=== PATIENT | female | born 1955 | race African-American/Black ===

== ENCOUNTER 2022-03-31 11:54 | Inpatient (IN) | payer MEDICARE, MEDICAID ==
[~2022-03-31] VITALS: Ht 165.1 cm; Wt 148.3 kg
[2022-03-31] MEDS ORDERED: METFORMIN (12:00)
[2022-03-31] MEDS ORDERED: SODIUM CHLORIDE 0.9% 1,000 ML IV ONE (12:15)
[2022-03-31] MEDS ORDERED: CLINDAMYCIN 600 MG in DEXTROSE 5% WATER 50 ML IV ONE (13:00)
[2022-03-31] MEDS ORDERED: CLINDAMYCIN 600 MG in SODIUM CHLORIDE 0.9% 50 ML IV ONE (13:01)
[2022-03-31 14:37] LABS: CHLORIDE 91 mEq/L (98-107)
[2022-03-31 14:39] LABS: HEMATOCRIT. 45.5 % (36.0-48.0); HEMOGLOBIN. 14.9 g/dL (12.0-16.0); MEAN CORPUSCULAR HEMOGLOBIN 23.7 pg (28.0-32.0); MEAN CORPUSCULAR VOLUME 72.3 fL (81.0-99.0); MEAN PLATELET VOLUME 11.1 fl (7.4-10.4); PLATELET 139 x1000/uL (130-400); RED BLOOD CELL COUNT 6.29 mill/uL (4.2-5.4); RED CELL DISTRIBUTION WIDTH 15.3 % (11.6-14.6)
[2022-03-31 14:57] LABS: CREATINE KINASE 1464 IU/L (26-192)
[2022-03-31] MEDS ORDERED: LEVOFLOXACIN 750MG PREMIX 100 ML IV SCH (15:00)
[2022-03-31] MEDS ORDERED: DEXTROSE 50% WATER 50ML SYRINGE IV PRN (15:00)
[2022-03-31] MEDS ORDERED: ACETAMINOPHEN 325MG TABLET PO PRN (15:00)
[2022-03-31] MEDS: SODIUM CHLORIDE 0.9% 1,000 ML IV SCH (15:28)
[2022-03-31 15:29] LABS: INR 1.3; PROTHROMBIN TIME 13.4 sec (9.6-11.0)
[2022-03-31 16:29] LABS: PLATELET ESTIMATE NORMAL
[2022-03-31] MEDS ORDERED: VANCOMYCIN 2,000 MG in DEXT 5% WATER 500 ML IV NR (16:30)
[2022-03-31] MEDS: BLOOD SUGAR DIAGNOSTIC STRIP TEST SCH ×2 (17:00→21:23)
[2022-03-31] MEDS: INSULIN LISPRO 100 UNITS/ML SUBCUT SCH ×2 (19:17→21:00)
[2022-03-31 20:17] LABS: CLARITY URINE CLOUDY (CLEAR); COLOR URINE DARK YELLOW (YELLOW); KETONES URINE TRACE (NEGATIVE); LEUKOCYTE ESTERASE URINE 2+ (NEGATIVE); NITRITE URINE NEGATIVE (NEGATIVE); OCCULT BLOOD URINE 2+ (NEGATIVE); PROTEIN URINE 1+ (NEGATIVE)
[2022-03-31] MEDS: METOPROLOL TARTRATE 50MG TABLET PO SCH (21:21)
[2022-03-31 22:40] VITALS: BP 110/53
[2022-03-31] MEDS: HYDROCODONE/ACETAMINOPHEN 10/325MG TABLET PO PRN (23:17)
[2022-04-01 04:00] VITALS: BP 113/74
[2022-04-01] MEDS: SODIUM CHLORIDE 0.9% 1,000 ML IV SCH ×2 (04:17→18:12)
[2022-04-01] MEDS: INSULIN LISPRO 100 UNITS/ML SUBCUT SCH ×4 (05:29→21:20)
[2022-04-01] MEDS: BLOOD SUGAR DIAGNOSTIC STRIP TEST SCH ×4 (05:30→21:21)
[2022-04-01 06:14] LABS: HEMATOCRIT. 41.1 % (36.0-48.0); HEMOGLOBIN. 13.2 g/dL (12.0-16.0); MEAN CORPUSCULAR HEMOGLOBIN 23.6 pg (28.0-32.0); MEAN CORPUSCULAR VOLUME 73.3 fL (81.0-99.0); MEAN PLATELET VOLUME 10.9 fl (7.4-10.4); PLATELET 125 x1000/uL (130-400); RED BLOOD CELL COUNT 5.61 mill/uL (4.2-5.4); RED CELL DISTRIBUTION WIDTH 14.9 % (11.6-14.6)
[2022-04-01 08:00] VITALS: BP 100/57
[2022-04-01] MEDS: METOPROLOL TARTRATE 50MG TABLET PO SCH ×2 (09:11→17:00)
[2022-04-01] MEDS: INSULIN GLARGINE 100 UNITS/ML SUBCUT SCH ×2 (09:47→21:21)
[2022-04-01 10:48] LABS: PLATELET ESTIMATE NORMAL
[2022-04-01 12:00] VITALS: BP 98/59
[2022-04-01 16:00] VITALS: BP 95/56
[2022-04-01] MEDS: HYDROCODONE/ACETAMINOPHEN 10/325MG TABLET PO PRN (17:30)
[2022-04-01 20:00] VITALS: BP 84/48
[2022-04-01 22:00] VITALS: BP 93/54
[2022-04-02] VITALS: BP 93/54
[2022-04-02 04:00] VITALS: BP 93/57
[2022-04-02] MEDS: HYDROCODONE/ACETAMINOPHEN 10/325MG TABLET PO PRN ×3 (04:04→17:09)
[2022-04-02] MEDS: SODIUM CHLORIDE 0.9% 1,000 ML IV SCH ×2 (06:10→22:57)
[2022-04-02] MEDS: BLOOD SUGAR DIAGNOSTIC STRIP TEST SCH ×4 (06:11→21:00)
[2022-04-02 08:00] VITALS: BP 99/59
[2022-04-02] MEDS: METOPROLOL TARTRATE 50MG TABLET PO SCH (08:36)
[2022-04-02] MEDS: INSULIN LISPRO 100 UNITS/ML SUBCUT SCH ×4 (08:43→23:07)
[2022-04-02] MEDS: INSULIN GLARGINE 100 UNITS/ML SUBCUT SCH ×2 (10:32→23:07)
[2022-04-02 11:56] LABS: HEMATOCRIT. 44.5 % (36.0-48.0); HEMOGLOBIN. 14.8 g/dL (12.0-16.0); MEAN CORPUSCULAR HEMOGLOBIN 23.9 pg (28.0-32.0); PLATELET 152 x1000/uL (130-400); RED BLOOD CELL COUNT 6.19 mill/uL (4.2-5.4); RED CELL DISTRIBUTION WIDTH 14.7 % (11.6-14.6)
[2022-04-02 12:00] VITALS: BP 116/65
[2022-04-02 12:40] LABS: PLATELET ESTIMATE NORMAL
[2022-04-02] MEDS ORDERED: LEVOFLOXACIN 250MG PREMIX 50 ML IV SCH (15:00)
[2022-04-02] MEDS ORDERED: LEVOFLOXACIN 750MG PREMIX 100 ML IV SCH (15:00)
[2022-04-02 16:00] VITALS: BP 100/60
[2022-04-02 20:00] VITALS: BP 102/56
[2022-04-03] VITALS (8 sets, daily range): BP systolic 87–112; BP diastolic 48–69
[2022-04-03] MEDS ORDERED: VANCOMYCIN 750MG PREMIX 150 ML IV NR
[2022-04-03] MEDS: HYDROCODONE/ACETAMINOPHEN 10/325MG TABLET PO PRN ×2 (01:07→21:46)
[2022-04-03 06:58] LABS: CHLORIDE 96 mEq/L (98-107)
[2022-04-03 07:04] LABS: HEMATOCRIT. 42.1 % (36.0-48.0); HEMOGLOBIN. 13.8 g/dL (12.0-16.0); MEAN CORPUSCULAR HEMOGLOBIN 23.7 pg (28.0-32.0); MEAN CORPUSCULAR VOLUME 72.3 fL (81.0-99.0); MEAN PLATELET VOLUME 10.4 fl (7.4-10.4); PLATELET 156 x1000/uL (130-400); RED BLOOD CELL COUNT 5.82 mill/uL (4.2-5.4); RED CELL DISTRIBUTION WIDTH 15.2 % (11.6-14.6)
[2022-04-03] MEDS: BLOOD SUGAR DIAGNOSTIC STRIP TEST SCH ×4 (07:40→21:56)
[2022-04-03] MEDS: INSULIN LISPRO 100 UNITS/ML SUBCUT SCH ×4 (08:57→21:52)
[2022-04-03] MEDS: SODIUM CHLORIDE 0.9% 1,000 ML IV SCH ×2 (08:59→21:58)
[2022-04-03] MEDS: INSULIN GLARGINE 100 UNITS/ML SUBCUT SCH ×2 (10:31→22:40)
[2022-04-03] MEDS: LEVOFLOXACIN 500MG PREMIX 100 ML IV SCH (13:52)
[2022-04-03] MEDS: VANCOMYCIN 1.25GM PMX (XELLIA) 250 ML IV SCH (21:47)
[2022-04-03] MEDS ORDERED: NALOXONE HCL 0.4MG/ML VIAL IV PRN (22:00)
[2022-04-03 22:06] LABS: PLATELET ESTIMATE NORMAL
[2022-04-04] VITALS: BP 91/47
[2022-04-04] MEDS: VANCOMYCIN 1.25GM PMX (XELLIA) 250 ML IV SCH
[2022-04-04 04:00] VITALS: BP 98/55
[2022-04-04] MEDS: BLOOD SUGAR DIAGNOSTIC STRIP TEST SCH ×4 (07:40→17:40)
[2022-04-04 08:00] VITALS: BP 110/66
[2022-04-04] MEDS: INSULIN LISPRO 100 UNITS/ML SUBCUT SCH ×3 (08:10→18:10)
[2022-04-04] MEDS: INSULIN GLARGINE 100 UNITS/ML SUBCUT SCH (10:00)
[2022-04-04 11:37] LABS: HEMATOCRIT. 42.1 % (36.0-48.0); HEMOGLOBIN. 13.7 g/dL (12.0-16.0); MEAN CORPUSCULAR HEMOGLOBIN 23.7 pg (28.0-32.0); MEAN CORPUSCULAR VOLUME 73.1 fL (81.0-99.0); PLATELET 178 x1000/uL (130-400); RED BLOOD CELL COUNT 5.76 mill/uL (4.2-5.4); RED CELL DISTRIBUTION WIDTH 15.1 % (11.6-14.6)
[2022-04-04 12:00] VITALS: BP 115/77
[2022-04-04] MEDS: LEVOFLOXACIN 500MG PREMIX 100 ML IV SCH (12:02)
[2022-04-04] MEDS: SODIUM CHLORIDE 0.9% 1,000 ML IV SCH (12:08)
[2022-04-04 12:31] LABS: CHLORIDE 97 mEq/L (98-107)
[2022-04-04 16:00] VITALS: BP 102/54
[2022-04-04] MEDS ORDERED: PROPOFOL 200MG/20ML VIAL IV ONE (17:53)
[2022-04-04] MEDS ORDERED: SUCCINYLCHOLINE CHLORIDE 200MG/10ML IV ONE (18:50)
[2022-04-04] MEDS ORDERED: CEFAZOLIN SODIUM 1000MG/VIAL ONE (18:50)
[2022-04-04] MEDS ORDERED: ONDANSETRON HCL 4MG/2ML INJ ONE (18:50)
[2022-04-04] MEDS ORDERED: DEXAMETHASONE 4MG/ML 1ML VIAL ONE (18:50)
[2022-04-04] MEDS ORDERED: EPHEDRINE SULFATE 50MG/ML VIAL ONE (18:51)
[2022-04-04] MEDS ORDERED: PHENYLEPHRINE HCL 10 MG/ML 1ML (IV VIAL) IV ONE (18:51)
[2022-04-04] MEDS ORDERED: LIDOCAINE HCL 1% 50ML VIAL (10MG/ML) ONE (18:52)
[2022-04-04] MEDS ORDERED: BUPIVACAINE HCL/PF 0.5% (5MG/ML) 10ML ONE (18:52)
[2022-04-04 19:00] LABS: PLATELET ESTIMATE NORMAL
[2022-04-04] MEDS ORDERED: POLYMYXIN B SULFATE 500000 UNITS/VIAL ONE (19:00)
[2022-04-04] MEDS ORDERED: ROCURONIUM BROMIDE 10MG/ML VIAL 5ML IV ONE ×2 (19:19→20:58)
[2022-04-04] MEDS ORDERED: MIDAZOLAM HCL 2 MG/2 ML VIAL ONE (19:20)
[2022-04-04] MEDS ORDERED: ATROPINE SULFATE 0.4MG/ML VIAL IV PRN (19:45)
[2022-04-04] MEDS ORDERED: PROPOFOL 10MG/ML 100ML 100 ML IV PRN (19:45)
[2022-04-04] MEDS ORDERED: NOREPINEPHRINE 8 MG in DEXT 5% WATER 242 ML IV PRN (20:00)
[2022-04-04] MEDS ORDERED: NALOXONE HCL 0.4MG/ML VIAL IV PRN (20:45)
[2022-04-04] MEDS ORDERED: SODIUM CHLORIDE 0.9% 1000ML BAG (SEPSIS BOLUS) IV NR (21:00)
[2022-04-04] MEDS: PHENYLEPHRINE 50 MG in DEXT 5% WATER 245 ML IV PRN (22:32)
[2022-04-04 22:36] LABS: BG BASE EXCESS -11.9 mmol/L (-2.0-2.0); BG DEOXYHEMOGLOBIN 5.1 % (0.0-5.0); BG FRACTION INSPIRED OXYGEN 100; BG HCO3 ACT 15.4 mmol/L (22.0-26.0); BG METHEMOGLOBIN 0.3 % (0.0-1.5); BG OXYGEN SATURATION 94.8 % (92.0-98.5); BG OXYHEMOGLOBIN 93.6 % (94.0-97.0); BG PH 7.204 (7.350-7.450); BG PO2 89.7 mmHg (75.0-100.0); BG SAMPLE SITE LEFT BRACHIAL; BG TOTAL HEMOGLOBIN 13.5 g/dL (12.0-18.0); BG VENT MODE VENT - AC
[2022-04-04] MEDS ORDERED: IPRATROPIUM/ALBUTEROL 0.5-3(2.5)MG/3ML NEB HHN PRN (23:30)
[2022-04-04] MEDS ORDERED: SODIUM BICARBONATE 8.4% 1 MEQ/ML 50ML SYR IV NR (23:30)
[2022-04-04] MEDS ORDERED: FENTANYL CITRATE/PF 2,500 MCG in SODIUM CHLORIDE 0.9% 200 ML IV PRN (23:30)
[2022-04-04] MEDS ORDERED: MIDAZOLAM HCL 100 MG in SODIUM CHLORIDE 0.9% 80 ML IV PRN (23:30)
[2022-04-05] VITALS (89 sets, daily range): BP systolic 62–147; BP diastolic 24–80
[2022-04-05] MEDS: PROPOFOL 10MG/ML 100ML 100 ML IV PRN ×3 (00:02→10:35)
[2022-04-05] MEDS: INSULIN LISPRO 100 UNITS/ML SUBCUT SCH ×5 (00:37→20:35)
[2022-04-05] MEDS: INSULIN GLARGINE 100 UNITS/ML SUBCUT SCH ×3 (00:37→21:23)
[2022-04-05] MEDS: SODIUM CHLORIDE 0.9% 1,000 ML IV SCH ×5 (00:38→21:25)
[2022-04-05] MEDS: PHENYLEPHRINE 50 MG in DEXT 5% WATER 245 ML IV PRN ×6 (03:20→20:25)
[2022-04-05] MEDS: BLOOD SUGAR DIAGNOSTIC STRIP TEST SCH ×4 (05:47→20:26)
[2022-04-05 05:48] LABS: HEMATOCRIT. 36.3 % (36.0-48.0); HEMOGLOBIN. 11.2 g/dL (12.0-16.0); MEAN CORPUSCULAR HEMOGLOBIN 23.5 pg (28.0-32.0); MEAN CORPUSCULAR VOLUME 76.3 fL (81.0-99.0); MEAN PLATELET VOLUME 10.3 fl (7.4-10.4); PLATELET 209 x1000/uL (130-400); RED BLOOD CELL COUNT 4.77 mill/uL (4.2-5.4)
[2022-04-05 08:24] LABS: BG BASE EXCESS -9.9 mmol/L (-2.0-2.0); BG CARBOXYHEMOGLOBIN 0.5 % (0.5-1.5); BG DEOXYHEMOGLOBIN 0.6 % (0.0-5.0); BG FRACTION INSPIRED OXYGEN 100; BG HCO3 ACT 14.7 mmol/L (22.0-26.0); BG OXYGEN SATURATION 99.4 % (92.0-98.5); BG OXYHEMOGLOBIN 98.9 % (94.0-97.0); BG PCO2 28.9 mmHg (35.0-45.0); BG PH 7.325 (7.350-7.450); BG PO2 257.1 mmHg (75.0-100.0); BG SAMPLE SITE LEFT BRACHIAL; BG TOTAL HEMOGLOBIN 12.2 g/dL (12.0-18.0); BG VENT MODE VENT - AC
[2022-04-05] MEDS: MIDODRINE HCL 5MG TABLET PO SCH ×3 (09:04→16:16)
[2022-04-05] MEDS: ENOXAPARIN 40MG/0.4ML SYR SUBCUT SCH ×2 (09:05→20:34)
[2022-04-05] MEDS: CEFEPIME 2,000 MG in DEXT 5% WATER 100 ML IV SCH ×2 (11:43→23:28)
[2022-04-05] MEDS: VANCOMYCIN 1GM PMX (XELLIA) 200 ML IV SCH (12:17)
[2022-04-05 13:29] LABS: BG BASE EXCESS -7.5 mmol/L (-2.0-2.0); BG CARBOXYHEMOGLOBIN 0.3 % (0.5-1.5); BG DEOXYHEMOGLOBIN 2.1 % (0.0-5.0); BG FRACTION INSPIRED OXYGEN 40; BG METHEMOGLOBIN 0.3 % (0.0-1.5); BG OXYGEN SATURATION 97.9 % (92.0-98.5); BG OXYHEMOGLOBIN 97.3 % (94.0-97.0); BG PH 7.391 (7.350-7.450); BG PO2 112.6 mmHg (75.0-100.0); BG SAMPLE SITE RIGHT RADIAL; BG VENT MODE VENT - CPAP
[2022-04-05] MEDS: HYDROMORPHONE HCL/PF 2MG/ML CPJ IV PRN (14:30)
[2022-04-06] VITALS (87 sets, daily range): BP systolic 80–128; BP diastolic 36–77
[2022-04-06] MEDS: PHENYLEPHRINE 50 MG in DEXT 5% WATER 245 ML IV PRN (01:09)
[2022-04-06] MEDS: SODIUM CHLORIDE 0.9% 1,000 ML IV SCH ×3 (03:08→21:47)
[2022-04-06] MEDS: HYDROMORPHONE HCL/PF 2MG/ML CPJ IV PRN ×3 (04:02→21:54)
[2022-04-06 04:57] LABS: CHLORIDE 108 mEq/L (98-107)
[2022-04-06] MEDS: INSULIN LISPRO 100 UNITS/ML SUBCUT SCH ×3 (05:38→17:25)
[2022-04-06] MEDS: BLOOD SUGAR DIAGNOSTIC STRIP TEST SCH ×4 (05:39→23:59)
[2022-04-06 06:53] LABS: PLATELET ESTIMATE NORMAL
[2022-04-06] MEDS: MIDODRINE HCL 5MG TABLET PO SCH ×3 (09:15→17:42)
[2022-04-06] MEDS: ENOXAPARIN 40MG/0.4ML SYR SUBCUT SCH ×2 (09:16→21:47)
[2022-04-06] MEDS: INSULIN GLARGINE 100 UNITS/ML SUBCUT SCH ×2 (09:16→21:46)
[2022-04-06 09:38] LABS: BG BASE EXCESS -5.9 mmol/L (-2.0-2.0); BG CARBOXYHEMOGLOBIN 0.3 % (0.5-1.5); BG DEOXYHEMOGLOBIN 5.6 % (0.0-5.0); BG FRACTION INSPIRED OXYGEN 28; BG HCO3 ACT 19.6 mmol/L (22.0-26.0); BG METHEMOGLOBIN 0.3 % (0.0-1.5); BG OXYGEN SATURATION 94.4 % (92.0-98.5); BG OXYHEMOGLOBIN 93.8 % (94.0-97.0); BG PCO2 38.7 mmHg (35.0-45.0); BG PH 7.323 (7.350-7.450); BG PO2 76.8 mmHg (75.0-100.0); BG SAMPLE SITE RIGHT BRACHIAL; BG TOTAL HEMOGLOBIN 10.9 g/dL (12.0-18.0); BG VENT MODE NASAL CANNULA
[2022-04-06 10:27] LABS: BASOPHILS % 0.3 % (0.0-2.0); EOSINOPHILS % 0.2 % (0.0-5.0); HEMATOCRIT. 33.7 % (36.0-48.0); HEMOGLOBIN. 10.6 g/dL (12.0-16.0); LYMPHOCYTES % 7.1 % (20.0-50.0); MEAN CORPUSCULAR HEMOGLOBIN 23.2 pg (28.0-32.0); MEAN CORPUSCULAR VOLUME 73.9 fL (81.0-99.0); MONOCYTES % 4.4 % (2.0-8.0); PLATELET 180 x1000/uL (130-400); RED BLOOD CELL COUNT 4.56 mill/uL (4.2-5.4); RED CELL DISTRIBUTION WIDTH 15.3 % (11.6-14.6)
[2022-04-06] MEDS: CEFEPIME 2,000 MG in DEXT 5% WATER 100 ML IV SCH ×2 (11:11→23:58)
[2022-04-06] MEDS: VANCOMYCIN 1GM PMX (XELLIA) 200 ML IV SCH (12:02)
[2022-04-07] VITALS (96 sets, daily range): BP systolic 85–152; BP diastolic 39–101
[2022-04-07] MEDS: HYDROMORPHONE HCL/PF 2MG/ML CPJ IV PRN ×2 (03:45→19:33)
[2022-04-07] MEDS ORDERED: SODIUM CHLORIDE 0.9% 1,000 ML IV ONE (04:30)
[2022-04-07 05:00] LABS: BASOPHILS % 0.2 % (0.0-2.0); EOSINOPHILS % 0.6 % (0.0-5.0); HEMOGLOBIN. 10.1 g/dL (12.0-16.0); LYMPHOCYTES % 8.2 % (20.0-50.0); MEAN CORPUSCULAR HEMOGLOBIN 23.2 pg (28.0-32.0); MEAN CORPUSCULAR VOLUME 73.4 fL (81.0-99.0); MEAN PLATELET VOLUME 8.7 fl (7.4-10.4); MONOCYTES % 3.9 % (2.0-8.0); NEUTROPHILS % 87.1 % (40.0-76.0); PLATELET 197 x1000/uL (130-400); RED BLOOD CELL COUNT 4.36 mill/uL (4.2-5.4); RED CELL DISTRIBUTION WIDTH 15.7 % (11.6-14.6)
[2022-04-07 05:12] LABS: CHLORIDE 111 mEq/L (98-107)
[2022-04-07] MEDS: BLOOD SUGAR DIAGNOSTIC STRIP TEST SCH ×4 (05:40→23:14)
[2022-04-07] MEDS: INSULIN LISPRO 100 UNITS/ML SUBCUT SCH ×5 (06:00→23:15)
[2022-04-07] MEDS: AMIODARONE HCL 900 MG in DEXT 5% WATER 482 ML IV PRN (08:27)
[2022-04-07 08:33] LABS: BG BASE EXCESS -10.3 mmol/L (-2.0-2.0); BG CARBOXYHEMOGLOBIN 0.8 % (0.5-1.5); BG DEOXYHEMOGLOBIN 6.2 % (0.0-5.0); BG HCO3 ACT 15.9 mmol/L (22.0-26.0); BG OXYGEN SATURATION 93.8 % (92.0-98.5); BG PCO2 36.4 mmHg (35.0-45.0); BG PH 7.259 (7.350-7.450); BG PO2 76.5 mmHg (75.0-100.0); BG SAMPLE SITE RIGHT RADIAL; BG TOTAL HEMOGLOBIN 11.6 g/dL (12.0-18.0); BG VENT MODE NASAL CANNULA
[2022-04-07] MEDS ORDERED: AMIODARONE HCL 150 MG in DEXT 5% WATER 100 ML IV NR (09:00)
[2022-04-07] MEDS ORDERED: SODIUM BICARBONATE 8.4% 1 MEQ/ML 50ML SYR IV SCH (10:00)
[2022-04-07] MEDS ORDERED: SODIUM CHLORIDE 0.9% 500 ML IV SCH (11:00)
[2022-04-07] MEDS: PHENYLEPHRINE 50 MG in DEXT 5% WATER 245 ML IV PRN ×2 (11:21→17:48)
[2022-04-07] MEDS: MIDODRINE HCL 5MG TABLET PO SCH ×3 (11:39→17:47)
[2022-04-07] MEDS: ENOXAPARIN 40MG/0.4ML SYR SUBCUT SCH ×2 (11:40→20:53)
[2022-04-07] MEDS: INSULIN GLARGINE 100 UNITS/ML SUBCUT SCH ×2 (11:52→22:00)
[2022-04-07 11:57] LABS: T4 FREE 0.87 ng/dL (0.76-1.46)
[2022-04-07] MEDS ORDERED: DIGOXIN 500MCG/2ML AMP IV SCH (12:00)
[2022-04-07] MEDS: CEFEPIME 2,000 MG in DEXT 5% WATER 100 ML IV SCH ×2 (12:09→23:17)
[2022-04-07] MEDS: SODIUM BICARBONATE 100 MEQ in SODIUM CHLORIDE 0.45% 1,000 ML IV SCH ×2 (12:09→23:18)
[2022-04-07] MEDS: VANCOMYCIN 1GM PMX (XELLIA) 200 ML IV SCH (12:09)
[2022-04-07] MEDS: AMIODARONE HCL 200 MG TABLET PO SCH ×2 (12:10→17:47)
[2022-04-07] MEDS ORDERED: LATA2.5D14 EACHEYE (17:40)
[2022-04-07] MEDS: LATANOPROST 0.005% OPHTH DROPS 2.5ML BOTHEYE SCH (20:53)
[2022-04-08] VITALS (91 sets, daily range): BP systolic 85–147; BP diastolic 36–79
[2022-04-08] MEDS: HYDROMORPHONE HCL/PF 2MG/ML CPJ IV PRN ×3 (03:16→20:53)
[2022-04-08 05:29] LABS: HEMATOCRIT. 30.2 % (36.0-48.0); HEMOGLOBIN. 9.7 g/dL (12.0-16.0); MEAN CORPUSCULAR HEMOGLOBIN 23.8 pg (28.0-32.0); MEAN CORPUSCULAR VOLUME 73.9 fL (81.0-99.0); MEAN PLATELET VOLUME 8.5 fl (7.4-10.4); PLATELET 208 x1000/uL (130-400); RED BLOOD CELL COUNT 4.09 mill/uL (4.2-5.4); RED CELL DISTRIBUTION WIDTH 15.5 % (11.6-14.6)
[2022-04-08 05:38] LABS: CHLORIDE 111 mEq/L (98-107)
[2022-04-08] MEDS: INSULIN LISPRO 100 UNITS/ML SUBCUT SCH ×4 (06:00→23:20)
[2022-04-08] MEDS: BLOOD SUGAR DIAGNOSTIC STRIP TEST SCH ×4 (06:05→23:15)
[2022-04-08] MEDS: AMIODARONE HCL 200 MG TABLET PO SCH ×3 (06:05→18:27)
[2022-04-08 08:21] LABS: BG BASE EXCESS -2.7 mmol/L (-2.0-2.0); BG CARBOXYHEMOGLOBIN 0.5 % (0.5-1.5); BG DEOXYHEMOGLOBIN 4.4 % (0.0-5.0); BG FRACTION INSPIRED OXYGEN 36; BG HCO3 ACT 22.3 mmol/L (22.0-26.0); BG METHEMOGLOBIN 0.3 % (0.0-1.5); BG OXYGEN SATURATION 95.6 % (92.0-98.5); BG OXYHEMOGLOBIN 94.8 % (94.0-97.0); BG PCO2 39.6 mmHg (35.0-45.0); BG PH 7.369 (7.350-7.450); BG SAMPLE SITE RIGHT BRACHIAL; BG TOTAL HEMOGLOBIN 9.6 g/dL (12.0-18.0); BG VENT MODE NASAL CANNULA
[2022-04-08] MEDS: ENOXAPARIN 40MG/0.4ML SYR SUBCUT SCH ×2 (09:40→20:53)
[2022-04-08] MEDS: MIDODRINE HCL 5MG TABLET PO SCH ×3 (09:41→18:27)
[2022-04-08] MEDS: VANCOMYCIN 1GM PMX (XELLIA) 200 ML IV SCH (11:08)
[2022-04-08] MEDS: CEFEPIME 2,000 MG in DEXT 5% WATER 100 ML IV SCH ×2 (11:08→23:19)
[2022-04-08] MEDS: INSULIN GLARGINE 100 UNITS/ML SUBCUT SCH ×2 (14:00→23:19)
[2022-04-08 14:21] LABS: NUCLEATED RED BLOOD CELLS 1 /100 WBC; PLATELET ESTIMATE NORMAL
[2022-04-08] MEDS: SODIUM BICARBONATE 100 MEQ in SODIUM CHLORIDE 0.45% 1,000 ML IV SCH (14:40)
[2022-04-08] MEDS: PHENYLEPHRINE 50 MG in DEXT 5% WATER 245 ML IV PRN (16:41)
[2022-04-08] MEDS: AMIODARONE HCL 900 MG in DEXT 5% WATER 482 ML IV PRN (19:52)
[2022-04-08] MEDS: LATANOPROST 0.005% OPHTH DROPS 2.5ML BOTHEYE SCH (20:53)
[2022-04-09] VITALS (86 sets, daily range): BP systolic 92–139; BP diastolic 33–106
[2022-04-09] MEDS: HYDROMORPHONE HCL/PF 2MG/ML CPJ IV PRN ×3 (01:20→23:35)
[2022-04-09] MEDS ORDERED: LATA2.5D14 EACHEYE (04:09)
[2022-04-09] MEDS ORDERED: BRIM5DRO6 EACHEYE (04:09)
[2022-04-09] MEDS ORDERED: ATOR40TA70 MT (04:09)
[2022-04-09] MEDS ORDERED: DORZ10DR9 EACHEYE (04:09)
[2022-04-09] MEDS ORDERED: MULT-1146 MT (04:09)
[2022-04-09] MEDS ORDERED: INS7030 SUBCUT (04:09)
[2022-04-09] MEDS ORDERED: HYDR12.54 MT (04:09)
[2022-04-09] MEDS ORDERED: SERT20OR6 PO (04:09)
[2022-04-09] MEDS: BLOOD SUGAR DIAGNOSTIC STRIP TEST SCH ×3 (05:30→18:19)
[2022-04-09] MEDS: SODIUM BICARBONATE 100 MEQ in SODIUM CHLORIDE 0.45% 1,000 ML IV SCH ×2 (05:36→22:13)
[2022-04-09 05:59] LABS: CHLORIDE 109 mEq/L (98-107)
[2022-04-09] MEDS: INSULIN LISPRO 100 UNITS/ML SUBCUT SCH ×3 (06:00→18:00)
[2022-04-09 06:04] LABS: BASOPHILS % 0.3 % (0.0-2.0); EOSINOPHILS % 0.9 % (0.0-5.0); HEMATOCRIT. 29.9 % (36.0-48.0); HEMOGLOBIN. 9.5 g/dL (12.0-16.0); LYMPHOCYTES % 7.6 % (20.0-50.0); MEAN CORPUSCULAR HEMOGLOBIN 23.7 pg (28.0-32.0); MEAN CORPUSCULAR VOLUME 74.5 fL (81.0-99.0); MEAN PLATELET VOLUME 8.6 fl (7.4-10.4); MONOCYTES % 4.1 % (2.0-8.0); NEUTROPHILS % 87.1 % (40.0-76.0); PLATELET 168 x1000/uL (130-400); RED BLOOD CELL COUNT 4.01 mill/uL (4.2-5.4); RED CELL DISTRIBUTION WIDTH 15.2 % (11.6-14.6)
[2022-04-09 06:27] LABS: INR 1.3; PARTIAL THROMBOPLASTIN TIME 33.9 sec (23.4-31.0); PROTHROMBIN TIME 13.7 sec (9.6-11.0)
[2022-04-09] MEDS: AMIODARONE HCL 200 MG TABLET PO SCH ×3 (06:36→17:00)
[2022-04-09] MEDS: MIDODRINE HCL 5MG TABLET PO SCH (08:43)
[2022-04-09] MEDS: ENOXAPARIN 40MG/0.4ML SYR SUBCUT SCH ×2 (09:00→21:00)
[2022-04-09] MEDS ORDERED: HYDROCODONE/ACETAMINOPHEN 5/325MG TABLET PO PRN (09:30)
[2022-04-09] MEDS ORDERED: MORPHINE SULFATE 4 MG/ML CPJ (NOT FOR IM USE) IV PRN (09:30)
[2022-04-09] MEDS ORDERED: POTASSIUM CHLORIDE 20MEQ/PACKET PO ONE (09:30)
[2022-04-09] MEDS ORDERED: HYDROCODONE/ACETAMINOPHEN 10/325MG TABLET PO PRN (09:30)
[2022-04-09] MEDS: INSULIN GLARGINE 100 UNITS/ML SUBCUT SCH ×2 (09:36→22:00)
[2022-04-09] MEDS ORDERED: NALOXONE HCL 0.4MG/ML VIAL IV PRN (09:45)
[2022-04-09] MEDS: CEFEPIME 2,000 MG in DEXT 5% WATER 100 ML IV SCH (12:58)
[2022-04-09] MEDS: MORPHINE SULFATE 2 MG/ML CPJ (NOT FOR IM USE) IV PRN ×2 (13:12→20:42)
[2022-04-09] MEDS: PHENYLEPHRINE 50 MG in DEXT 5% WATER 245 ML IV PRN (13:27)
[2022-04-09] MEDS: VANCOMYCIN 1GM PMX (XELLIA) 200 ML IV SCH (13:28)
[2022-04-09] MEDS: METRONIDAZOLE 500MG TABLET PO SCH ×2 (14:57→22:13)
[2022-04-10] VITALS (84 sets, daily range): BP systolic 81–162; BP diastolic 29–79
[2022-04-10] MEDS: CEFEPIME 2,000 MG in DEXT 5% WATER 100 ML IV SCH ×2 (02:37→12:18)
[2022-04-10] MEDS: LATANOPROST 0.005% OPHTH DROPS 2.5ML BOTHEYE SCH ×2 (02:38→21:42)
[2022-04-10] MEDS: MORPHINE SULFATE 2 MG/ML CPJ (NOT FOR IM USE) IV PRN ×2 (02:47→09:22)
[2022-04-10] MEDS: AMIODARONE HCL 900 MG in DEXT 5% WATER 482 ML IV PRN (04:53)
[2022-04-10 05:32] LABS: BASOPHILS % 0.4 % (0.0-2.0); HEMATOCRIT. 29.2 % (36.0-48.0); HEMOGLOBIN. 9.4 g/dL (12.0-16.0); MEAN CORPUSCULAR HEMOGLOBIN 23.7 pg (28.0-32.0); MEAN CORPUSCULAR VOLUME 74.1 fL (81.0-99.0); MEAN PLATELET VOLUME 8.3 fl (7.4-10.4); MONOCYTES % 8.6 % (2.0-8.0); PLATELET 157 x1000/uL (130-400); RED BLOOD CELL COUNT 3.94 mill/uL (4.2-5.4)
[2022-04-10 05:55] LABS: CHLORIDE 105 mEq/L (98-107)
[2022-04-10] MEDS: INSULIN LISPRO 100 UNITS/ML SUBCUT SCH ×4 (06:00→17:30)
[2022-04-10] MEDS: AMIODARONE HCL 200 MG TABLET PO SCH ×2 (06:09→17:18)
[2022-04-10] MEDS: METRONIDAZOLE 500MG TABLET PO SCH ×3 (06:09→21:42)
[2022-04-10] MEDS: HYDROMORPHONE HCL/PF 2MG/ML CPJ IV PRN ×3 (06:10→18:00)
[2022-04-10] MEDS: BLOOD SUGAR DIAGNOSTIC STRIP TEST SCH ×4 (06:50→17:30)
[2022-04-10] MEDS: ENOXAPARIN 40MG/0.4ML SYR SUBCUT SCH ×2 (08:57→21:00)
[2022-04-10] MEDS: INSULIN GLARGINE 100 UNITS/ML SUBCUT SCH ×2 (10:00→21:43)
[2022-04-10] MEDS ORDERED: NALOXONE HCL 0.4MG/ML VIAL IV PRN (11:00)
[2022-04-10] MEDS: VANCOMYCIN 1GM PMX (XELLIA) 200 ML IV SCH (12:18)
[2022-04-10] MEDS: SODIUM BICARBONATE 100 MEQ in SODIUM CHLORIDE 0.45% 1,000 ML IV SCH (12:19)
[2022-04-10] MEDS: HYDROCODONE/ACETAMINOPHEN 10/325MG TABLET PO PRN (13:43)
[2022-04-10] MEDS: DIPHENHYDRAMINE 25MG CAPSULE PO PRN (14:03)
[2022-04-10] MEDS: SODIUM CHLORIDE 0.9% 1,000 ML IV SCH (17:34)
[2022-04-10] MEDS: PHENYLEPHRINE 50 MG in DEXT 5% WATER 245 ML IV PRN ×2 (18:18→21:59)
[2022-04-11] VITALS (82 sets, daily range): BP systolic 61–143; BP diastolic 18–76
[2022-04-11] MEDS: BLOOD SUGAR DIAGNOSTIC STRIP TEST SCH ×4 (00:58→18:55)
[2022-04-11] MEDS: HYDROMORPHONE HCL/PF 2MG/ML CPJ IV PRN ×3 (01:05→12:49)
[2022-04-11] MEDS: CEFEPIME 2,000 MG in DEXT 5% WATER 100 ML IV SCH ×2 (01:09→12:49)
[2022-04-11] MEDS: INSULIN LISPRO 100 UNITS/ML SUBCUT SCH ×4 (06:00→18:00)
[2022-04-11] MEDS: METRONIDAZOLE 500MG TABLET PO SCH ×3 (06:00→21:13)
[2022-04-11] MEDS: AMIODARONE HCL 200 MG TABLET PO SCH ×2 (07:00→17:00)
[2022-04-11] MEDS: ENOXAPARIN 40MG/0.4ML SYR SUBCUT SCH ×2 (08:01→21:11)
[2022-04-11 10:33] LABS: BASOPHILS % 0.3 % (0.0-2.0); EOSINOPHILS % 1.1 % (0.0-5.0); HEMOGLOBIN. 8.9 g/dL (12.0-16.0); LYMPHOCYTES % 17.4 % (20.0-50.0); MEAN CORPUSCULAR HEMOGLOBIN 23.4 pg (28.0-32.0); MEAN CORPUSCULAR VOLUME 73.4 fL (81.0-99.0); MEAN PLATELET VOLUME 8.5 fl (7.4-10.4); MONOCYTES % 9.7 % (2.0-8.0); NEUTROPHILS % 71.5 % (40.0-76.0); PLATELET 167 x1000/uL (130-400); RED BLOOD CELL COUNT 3.82 mill/uL (4.2-5.4); RED CELL DISTRIBUTION WIDTH 14.9 % (11.6-14.6)
[2022-04-11 10:42] LABS: CHLORIDE 109 mEq/L (98-107)
[2022-04-11] MEDS: INSULIN GLARGINE 100 UNITS/ML SUBCUT SCH ×2 (11:00→21:12)
[2022-04-11] MEDS: SODIUM CHLORIDE 0.9% 1,000 ML IV SCH (12:48)
[2022-04-11] MEDS: VANCOMYCIN 1GM PMX (XELLIA) 200 ML IV SCH (12:50)
[2022-04-11] MEDS ORDERED: LIDOCAINE HCL 1% 50ML VIAL (10MG/ML) ONE (15:02)
[2022-04-11] MEDS ORDERED: POLYMYXIN B SULFATE 500000 UNITS/VIAL ONE (15:02)
[2022-04-11] MEDS ORDERED: BUPIVACAINE HCL 0.5% (5MG/ML) 50ML ONE (15:03)
[2022-04-11] MEDS ORDERED: BUPIVACAINE HCL/PF 0.5% (5MG/ML) 10ML ONE (15:03)
[2022-04-11] MEDS: MIDODRINE HCL 5MG TABLET PO SCH ×2 (15:15→17:00)
[2022-04-11] MEDS ORDERED: PROPOFOL 200MG/20ML VIAL IV ONE (15:43)
[2022-04-11] MEDS ORDERED: SUCCINYLCHOLINE CHLORIDE 200MG/10ML IV ONE (15:43)
[2022-04-11] MEDS ORDERED: METOCLOPRAMIDE HCL 10MG/2ML VIAL ONE (15:43)
[2022-04-11] MEDS ORDERED: HYDROMORPHONE HCL/PF 2MG/ML CPJ ONE (15:44)
[2022-04-11] MEDS ORDERED: ONDANSETRON HCL 4MG/2ML INJ ONE (15:46)
[2022-04-11] MEDS ORDERED: LIDOCAINE HCL/PF 2% 20MG/ML 5 ML/VIAL ONE (15:46)
[2022-04-11] MEDS ORDERED: MIDAZOLAM HCL 2 MG/2 ML VIAL ONE (15:47)
[2022-04-11 19:07] LABS: BG BASE EXCESS 0.9 mmol/L (-2.0-2.0); BG CARBOXYHEMOGLOBIN 0.2 % (0.5-1.5); BG DEOXYHEMOGLOBIN 7.6 % (0.0-5.0); BG FRACTION INSPIRED OXYGEN 50; BG HCO3 ACT 25.4 mmol/L (22.0-26.0); BG METHEMOGLOBIN 0.3 % (0.0-1.5); BG OXYGEN SATURATION 92.4 % (92.0-98.5); BG OXYHEMOGLOBIN 91.9 % (94.0-97.0); BG PCO2 40.5 mmHg (35.0-45.0); BG PH 7.416 (7.350-7.450); BG PO2 67.1 mmHg (75.0-100.0); BG SAMPLE SITE LEFT BRACHIAL; BG TOTAL HEMOGLOBIN 10.3 g/dL (12.0-18.0); BG VENT MODE VENT - AC
[2022-04-11] MEDS: PROPOFOL 10MG/ML 100ML 100 ML IV PRN (20:00)
[2022-04-11] MEDS: LATANOPROST 0.005% OPHTH DROPS 2.5ML BOTHEYE SCH (22:07)
[2022-04-12] VITALS (87 sets, daily range): BP systolic 83–125; BP diastolic 24–74
[2022-04-12] MEDS: INSULIN LISPRO 100 UNITS/ML SUBCUT SCH ×4 (00:08→17:25)
[2022-04-12] MEDS: PROPOFOL 10MG/ML 100ML 100 ML IV PRN ×2 (02:28→07:08)
[2022-04-12] MEDS: HYDROMORPHONE HCL/PF 2MG/ML CPJ IV PRN ×2 (04:52→21:43)
[2022-04-12] MEDS: SODIUM CHLORIDE 0.9% 1,000 ML IV SCH ×2 (04:52→23:38)
[2022-04-12] MEDS: PHENYLEPHRINE 50 MG in DEXT 5% WATER 245 ML IV PRN (04:54)
[2022-04-12 05:05] LABS: BASOPHILS % 0.3 % (0.0-2.0); EOSINOPHILS % 1.1 % (0.0-5.0); HEMATOCRIT. 31.7 % (36.0-48.0); HEMOGLOBIN. 9.7 g/dL (12.0-16.0); LYMPHOCYTES % 11.7 % (20.0-50.0); MEAN CORPUSCULAR HEMOGLOBIN 23.8 pg (28.0-32.0); MEAN CORPUSCULAR VOLUME 77.9 fL (81.0-99.0); MONOCYTES % 5.9 % (2.0-8.0); PLATELET 179 x1000/uL (130-400); RED BLOOD CELL COUNT 4.06 mill/uL (4.2-5.4)
[2022-04-12 05:18] LABS: CHLORIDE 109 mEq/L (98-107)
[2022-04-12] MEDS: METRONIDAZOLE 500MG TABLET PO SCH ×3 (06:00→21:41)
[2022-04-12] MEDS: BLOOD SUGAR DIAGNOSTIC STRIP TEST SCH ×5 (06:15→23:57)
[2022-04-12] MEDS: AMIODARONE HCL 200 MG TABLET PO SCH ×2 (06:16→17:24)
[2022-04-12] MEDS: MIDODRINE HCL 5MG TABLET PO SCH ×4 (08:40→17:24)
[2022-04-12] MEDS: ENOXAPARIN 40MG/0.4ML SYR SUBCUT SCH ×2 (09:04→21:42)
[2022-04-12] MEDS: INSULIN GLARGINE 100 UNITS/ML SUBCUT SCH ×2 (09:08→21:44)
[2022-04-12] MEDS: HYDROCODONE/ACETAMINOPHEN 10/325MG TABLET PO PRN ×2 (09:08→15:55)
[2022-04-12] MEDS: ONDANSETRON HCL 4MG/2ML INJ IV PRN ×2 (09:11→15:54)
[2022-04-12] MEDS: VANCOMYCIN 1GM PMX (XELLIA) 200 ML IV SCH (11:37)
[2022-04-12] MEDS: CEFEPIME 2,000 MG in DEXT 5% WATER 100 ML IV SCH ×4 (12:42→23:57)
[2022-04-12] MEDS ORDERED: MIDODRINE HCL 5MG TABLET PO SCH ×2 (13:00→13:15)
[2022-04-12] MEDS: LATANOPROST 0.005% OPHTH DROPS 2.5ML BOTHEYE SCH (21:59)
[2022-04-13] VITALS (85 sets, daily range): BP systolic 85–130; BP diastolic 37–71
[2022-04-13] MEDS: INSULIN LISPRO 100 UNITS/ML SUBCUT SCH ×5 (00:17→21:00)
[2022-04-13] MEDS: HYDROMORPHONE HCL/PF 2MG/ML CPJ IV PRN ×3 (05:22→16:20)
[2022-04-13] MEDS: PHENYLEPHRINE 50 MG in DEXT 5% WATER 245 ML IV PRN (05:23)
[2022-04-13] MEDS: BLOOD SUGAR DIAGNOSTIC STRIP TEST SCH ×4 (06:00→21:11)
[2022-04-13] MEDS: AMIODARONE HCL 200 MG TABLET PO SCH ×2 (07:00→17:01)
[2022-04-13] MEDS: METRONIDAZOLE 500MG TABLET PO SCH ×3 (07:01→21:10)
[2022-04-13] MEDS: MIDODRINE HCL 5MG TABLET PO SCH ×3 (09:17→17:01)
[2022-04-13] MEDS: ENOXAPARIN 40MG/0.4ML SYR SUBCUT SCH ×2 (09:18→21:25)
[2022-04-13] MEDS: INSULIN GLARGINE 100 UNITS/ML SUBCUT SCH ×2 (10:21→21:34)
[2022-04-13] MEDS: VANCOMYCIN 1GM PMX (XELLIA) 200 ML IV SCH (12:23)
[2022-04-13 13:07] LABS: BASOPHILS % 0.5 % (0.0-2.0); HEMATOCRIT. 29.8 % (36.0-48.0); HEMOGLOBIN. 9.3 g/dL (12.0-16.0); LYMPHOCYTES % 31.1 % (20.0-50.0); MEAN CORPUSCULAR HEMOGLOBIN 24.2 pg (28.0-32.0); MEAN CORPUSCULAR VOLUME 77.5 fL (81.0-99.0); MEAN PLATELET VOLUME 8.8 fl (7.4-10.4); MONOCYTES % 12.1 % (2.0-8.0); NEUTROPHILS % 55.3 % (40.0-76.0); PLATELET 184 x1000/uL (130-400); RED BLOOD CELL COUNT 3.84 mill/uL (4.2-5.4); RED CELL DISTRIBUTION WIDTH 15.9 % (11.6-14.6)
[2022-04-13] MEDS: CEFEPIME 2,000 MG in DEXT 5% WATER 100 ML IV SCH ×2 (13:19→23:25)
[2022-04-13 14:16] LABS: CHLORIDE 112 mEq/L (98-107)
[2022-04-13] MEDS: HYDROCODONE/ACETAMINOPHEN 10/325MG TABLET PO PRN (19:49)
[2022-04-13] MEDS ORDERED: DEXTROSE 50% WATER 50ML SYRINGE IV PRN (20:15)
[2022-04-13] MEDS: LATANOPROST 0.005% OPHTH DROPS 2.5ML BOTHEYE SCH ×2 (21:00→23:27)
[2022-04-13] MEDS: SODIUM CHLORIDE 0.9% 1,000 ML IV SCH (21:27)
[2022-04-14] VITALS (28 sets, daily range): BP systolic 92–131; BP diastolic 25–71
[2022-04-14] MEDS: HYDROMORPHONE HCL/PF 2MG/ML CPJ IV PRN ×4 (01:21→12:34)
[2022-04-14] MEDS: BLOOD SUGAR DIAGNOSTIC STRIP TEST SCH ×4 (05:52→21:00)
[2022-04-14] MEDS: METRONIDAZOLE 500MG TABLET PO SCH ×3 (05:52→22:59)
[2022-04-14] MEDS: AMIODARONE HCL 200 MG TABLET PO SCH ×2 (06:08→18:04)
[2022-04-14] MEDS: INSULIN LISPRO 100 UNITS/ML SUBCUT SCH ×4 (06:09→21:00)
[2022-04-14] MEDS: ENOXAPARIN 40MG/0.4ML SYR SUBCUT SCH ×2 (08:13→21:00)
[2022-04-14] MEDS: MIDODRINE HCL 5MG TABLET PO SCH ×3 (08:13→18:08)
[2022-04-14] MEDS: INSULIN GLARGINE 100 UNITS/ML SUBCUT SCH ×2 (10:47→22:56)
[2022-04-14] MEDS: VANCOMYCIN 1GM PMX (XELLIA) 200 ML IV SCH (12:35)
[2022-04-14] MEDS: CEFEPIME 2,000 MG in DEXT 5% WATER 100 ML IV SCH ×2 (12:35→23:10)
[2022-04-14] MEDS: HYDROCODONE/ACETAMINOPHEN 10/325MG TABLET PO PRN ×2 (18:03→22:59)
[2022-04-14] MEDS: LATANOPROST 0.005% OPHTH DROPS 2.5ML BOTHEYE SCH (21:00)
[2022-04-14] MEDS: SODIUM CHLORIDE 0.9% 1,000 ML IV SCH (23:14)
[2022-04-15] VITALS: BP 128/63
[2022-04-15 04:00] VITALS: BP 102/67
[2022-04-15] MEDS: HYDROCODONE/ACETAMINOPHEN 10/325MG TABLET PO PRN ×3 (04:02→23:12)
[2022-04-15 08:00] VITALS: BP 98/45
[2022-04-15] MEDS: BLOOD SUGAR DIAGNOSTIC STRIP TEST SCH ×4 (08:08→20:46)
[2022-04-15] MEDS: INSULIN LISPRO 100 UNITS/ML SUBCUT SCH ×4 (08:10→20:48)
[2022-04-15] MEDS: MIDODRINE HCL 5MG TABLET PO SCH ×3 (09:39→17:13)
[2022-04-15] MEDS: AMIODARONE HCL 200 MG TABLET PO SCH (09:40)
[2022-04-15] MEDS: METRONIDAZOLE 500MG TABLET PO SCH ×3 (09:40→21:12)
[2022-04-15] MEDS: ENOXAPARIN 40MG/0.4ML SYR SUBCUT SCH ×2 (09:40→21:12)
[2022-04-15] MEDS: INSULIN GLARGINE 100 UNITS/ML SUBCUT SCH ×2 (09:41→21:13)
[2022-04-15] MEDS ORDERED: MORPHINE SULFATE 2 MG/ML CPJ (NOT FOR IM USE) IV NR (10:45)
[2022-04-15] MEDS: CEFEPIME 2,000 MG in DEXT 5% WATER 100 ML IV SCH ×2 (11:38→23:12)
[2022-04-15] MEDS ORDERED: VANCOMYCIN 1.25GM PMX (XELLIA) 250 ML IV SCH (12:00)
[2022-04-15 16:00] VITALS: BP 117/57
[2022-04-15] MEDS ORDERED: NALOXONE HCL 0.4MG/ML VIAL IV PRN (16:15)
[2022-04-15] MEDS: SODIUM CHLORIDE 0.9% 1,000 ML IV SCH (17:50)
[2022-04-15 20:00] VITALS: BP 128/63
[2022-04-15] MEDS: LATANOPROST 0.005% OPHTH DROPS 2.5ML BOTHEYE SCH (21:12)
[2022-04-16] VITALS: BP 113/67
[2022-04-16 04:00] VITALS: BP 98/57
[2022-04-16] MEDS: VANCOMYCIN 1GM PMX (XELLIA) 200 ML IV SCH (06:11)
[2022-04-16] MEDS: METRONIDAZOLE 500MG TABLET PO SCH ×3 (06:11→22:10)
[2022-04-16] MEDS: INSULIN LISPRO 100 UNITS/ML SUBCUT SCH ×3 (07:57→20:09)
[2022-04-16] MEDS: BLOOD SUGAR DIAGNOSTIC STRIP TEST SCH ×4 (07:57→20:09)
[2022-04-16] MEDS: ENOXAPARIN 40MG/0.4ML SYR SUBCUT SCH ×2 (10:42→20:15)
[2022-04-16] MEDS: MIDODRINE HCL 5MG TABLET PO SCH ×3 (10:43→17:38)
[2022-04-16] MEDS: HYDROCODONE/ACETAMINOPHEN 10/325MG TABLET PO PRN ×3 (10:43→23:47)
[2022-04-16] MEDS: INSULIN GLARGINE 100 UNITS/ML SUBCUT SCH (10:44)
[2022-04-16 12:00] VITALS: BP 125/67
[2022-04-16] MEDS: CEFEPIME 2,000 MG in DEXT 5% WATER 100 ML IV SCH ×2 (12:00→23:46)
[2022-04-16] MEDS: SODIUM CHLORIDE 0.9% 1,000 ML IV SCH (14:00)
[2022-04-16 16:00] VITALS: BP 99/56
[2022-04-16 20:00] VITALS: BP 128/68
[2022-04-16] MEDS: LATANOPROST 0.005% OPHTH DROPS 2.5ML BOTHEYE SCH (20:15)
[2022-04-17] VITALS: BP 100/58
[2022-04-17] MEDS: VANCOMYCIN 1GM PMX (XELLIA) 200 ML IV SCH ×2 (00:58→17:26)
[2022-04-17 04:00] VITALS: BP 109/61
[2022-04-17] MEDS: METRONIDAZOLE 500MG TABLET PO SCH ×3 (06:00→21:20)
[2022-04-17] MEDS: HYDROCODONE/ACETAMINOPHEN 10/325MG TABLET PO PRN ×3 (06:04→17:25)
[2022-04-17] MEDS: BLOOD SUGAR DIAGNOSTIC STRIP TEST SCH ×4 (07:01→21:20)
[2022-04-17] MEDS: INSULIN LISPRO 100 UNITS/ML SUBCUT SCH ×4 (07:34→21:00)
[2022-04-17 08:00] VITALS: BP 118/55
[2022-04-17] MEDS: MIDODRINE HCL 5MG TABLET PO SCH ×3 (08:31→17:25)
[2022-04-17] MEDS: ENOXAPARIN 40MG/0.4ML SYR SUBCUT SCH ×2 (08:32→21:20)
[2022-04-17] MEDS: AMIODARONE HCL 200 MG TABLET PO SCH ×2 (08:33→17:25)
[2022-04-17] MEDS: SODIUM CHLORIDE 0.9% 1,000 ML IV SCH (10:42)
[2022-04-17 12:00] VITALS: BP 108/51
[2022-04-17] MEDS: CEFEPIME 2,000 MG in DEXT 5% WATER 100 ML IV SCH (12:17)
[2022-04-17] MEDS ORDERED: ACETAMINOPHEN 325MG TABLET PO PRN (14:45)
[2022-04-17 16:00] VITALS: BP 146/62
[2022-04-17 20:00] VITALS: BP 114/59
[2022-04-17] MEDS: LATANOPROST 0.005% OPHTH DROPS 2.5ML BOTHEYE SCH (21:20)
[2022-04-18] VITALS: BP 94/58
[2022-04-18] MEDS: HYDROCODONE/ACETAMINOPHEN 10/325MG TABLET PO PRN ×4 (03:10→18:15)
[2022-04-18 04:00] VITALS: BP 114/67
[2022-04-18] MEDS: SODIUM CHLORIDE 0.9% 1,000 ML IV SCH (04:54)
[2022-04-18] MEDS: BLOOD SUGAR DIAGNOSTIC STRIP TEST SCH ×4 (06:59→21:00)
[2022-04-18] MEDS: INSULIN LISPRO 100 UNITS/ML SUBCUT SCH ×4 (07:43→21:00)
[2022-04-18 08:00] VITALS: BP 114/62
[2022-04-18] MEDS: AMIODARONE HCL 200 MG TABLET PO SCH ×2 (08:59→18:15)
[2022-04-18] MEDS: MIDODRINE HCL 5MG TABLET PO SCH ×3 (08:59→17:00)
[2022-04-18] MEDS: ENOXAPARIN 40MG/0.4ML SYR SUBCUT SCH ×2 (09:00→21:00)
[2022-04-18 12:00] VITALS: BP 128/63
[2022-04-18 16:00] VITALS: BP 112/63
[2022-04-18 20:00] VITALS: BP 129/73
[2022-04-18] MEDS: LATANOPROST 0.005% OPHTH DROPS 2.5ML BOTHEYE SCH (21:22)
[2022-04-18] MEDS ORDERED: MORPHINE SULFATE 2 MG/ML CPJ (NOT FOR IM USE) IV NR (21:45)
[2022-04-19] VITALS: BP 100/55
[2022-04-19] MEDS: SODIUM CHLORIDE 0.9% 1,000 ML IV SCH (03:13)
[2022-04-19 04:00] VITALS: BP 104/55
[2022-04-19] MEDS: BLOOD SUGAR DIAGNOSTIC STRIP TEST SCH ×4 (07:33→20:42)
[2022-04-19 08:00] VITALS: BP 96/50
[2022-04-19] MEDS: INSULIN LISPRO 100 UNITS/ML SUBCUT SCH ×4 (08:10→21:00)
[2022-04-19] MEDS ORDERED: SODIUM CHLORIDE 45ML SPRAY NS PRN (09:15)
[2022-04-19] MEDS ORDERED: OXYCODONE HCL/ACETAMINOPHEN 5/325MG TABLET PO PRN (09:15)
[2022-04-19] MEDS: HYDROCODONE/ACETAMINOPHEN 10/325MG TABLET PO PRN ×2 (09:35→20:39)
[2022-04-19] MEDS: ENOXAPARIN 40MG/0.4ML SYR SUBCUT SCH ×2 (09:35→20:42)
[2022-04-19] MEDS: MIDODRINE HCL 5MG TABLET PO SCH ×3 (09:36→17:00)
[2022-04-19] MEDS: AMIODARONE HCL 200 MG TABLET PO SCH ×2 (09:36→17:25)
[2022-04-19 12:00] VITALS: BP 104/76
[2022-04-19 16:00] VITALS: BP 127/61
[2022-04-19 20:00] VITALS: BP 117/65
[2022-04-19] MEDS: LATANOPROST 0.005% OPHTH DROPS 2.5ML BOTHEYE SCH (20:32)
[2022-04-20] VITALS: BP 98/47
[2022-04-20] MEDS: HYDROCODONE/ACETAMINOPHEN 10/325MG TABLET PO PRN ×4 (02:37→23:20)
[2022-04-20 04:00] VITALS: BP 107/63
[2022-04-20] MEDS: BLOOD SUGAR DIAGNOSTIC STRIP TEST SCH ×4 (06:21→21:00)
[2022-04-20 08:00] VITALS: BP 99/60
[2022-04-20] MEDS: INSULIN LISPRO 100 UNITS/ML SUBCUT SCH ×4 (08:06→21:00)
[2022-04-20 08:15] LABS: HEMOGLOBIN. 9.1 g/dL (12.0-16.0); MEAN CORPUSCULAR VOLUME 74.3 fL (81.0-99.0); MEAN PLATELET VOLUME 8.7 fl (7.4-10.4); PLATELET 248 x1000/uL (130-400); RED BLOOD CELL COUNT 3.77 mill/uL (4.2-5.4); RED CELL DISTRIBUTION WIDTH 16.6 % (11.6-14.6)
[2022-04-20 08:22] LABS: CHLORIDE 108 mEq/L (98-107)
[2022-04-20] MEDS: AMIODARONE HCL 200 MG TABLET PO SCH ×2 (08:58→18:43)
[2022-04-20] MEDS: ENOXAPARIN 40MG/0.4ML SYR SUBCUT SCH ×2 (08:58→21:03)
[2022-04-20] MEDS: MIDODRINE HCL 5MG TABLET PO SCH ×3 (08:59→18:43)
[2022-04-20 11:29] LABS: PLATELET ESTIMATE NORMAL
[2022-04-20 12:00] VITALS: BP 113/59
[2022-04-20 16:00] VITALS: BP 94/45
[2022-04-20] MEDS: SODIUM CHLORIDE 0.9% 1,000 ML IV SCH (17:30)
[2022-04-20 20:00] VITALS: BP 112/49
[2022-04-20] MEDS: LATANOPROST 0.005% OPHTH DROPS 2.5ML BOTHEYE SCH (21:04)
[2022-04-21] VITALS: BP 91/52
[2022-04-21 04:00] VITALS: BP 101/50
[2022-04-21] MEDS: SODIUM CHLORIDE 0.9% 1,000 ML IV SCH (05:38)
[2022-04-21] MEDS: BLOOD SUGAR DIAGNOSTIC STRIP TEST SCH ×4 (05:52→20:44)
[2022-04-21] MEDS: HYDROCODONE/ACETAMINOPHEN 10/325MG TABLET PO PRN ×3 (05:57→20:44)
[2022-04-21] MEDS: INSULIN LISPRO 100 UNITS/ML SUBCUT SCH ×4 (05:59→20:44)
[2022-04-21 08:00] VITALS: BP 101/40
[2022-04-21] MEDS: AMIODARONE HCL 200 MG TABLET PO SCH ×2 (09:08→17:23)
[2022-04-21] MEDS: MIDODRINE HCL 5MG TABLET PO SCH ×3 (09:08→17:23)
[2022-04-21] MEDS: ENOXAPARIN 40MG/0.4ML SYR SUBCUT SCH ×2 (09:08→20:43)
[2022-04-21 12:00] VITALS: BP 124/65
[2022-04-21 16:00] VITALS: BP 122/56
[2022-04-21] MEDS: DIPHENHYDRAMINE 25MG CAPSULE PO PRN (18:33)
[2022-04-21 20:00] VITALS: BP 161/59
[2022-04-21] MEDS: LATANOPROST 0.005% OPHTH DROPS 2.5ML BOTHEYE SCH (20:44)
[2022-04-22] VITALS: BP 103/55
[2022-04-22 04:00] VITALS: BP 166/70
[2022-04-22] MEDS: HYDROCODONE/ACETAMINOPHEN 10/325MG TABLET PO PRN ×4 (04:38→20:15)
[2022-04-22 08:00] VITALS: BP 124/60
[2022-04-22] MEDS: INSULIN LISPRO 100 UNITS/ML SUBCUT SCH ×4 (08:10→20:16)
[2022-04-22] MEDS: BLOOD SUGAR DIAGNOSTIC STRIP TEST SCH ×4 (08:29→20:15)
[2022-04-22] MEDS: MIDODRINE HCL 5MG TABLET PO SCH ×3 (10:15→19:11)
[2022-04-22] MEDS: AMIODARONE HCL 200 MG TABLET PO SCH ×2 (10:16→19:08)
[2022-04-22] MEDS: SODIUM CHLORIDE 0.9% 1,000 ML IV SCH (10:17)
[2022-04-22] MEDS: ENOXAPARIN 40MG/0.4ML SYR SUBCUT SCH ×2 (10:20→20:14)
[2022-04-22 12:00] VITALS: BP 116/71
[2022-04-22 16:00] VITALS: BP 113/69
[2022-04-22 20:00] VITALS: BP 115/58
[2022-04-22] MEDS: LATANOPROST 0.005% OPHTH DROPS 2.5ML BOTHEYE SCH (20:14)
[2022-04-23] VITALS: BP 95/38
[2022-04-23] MEDS: HYDROCODONE/ACETAMINOPHEN 10/325MG TABLET PO PRN ×4 (01:17→18:28)
[2022-04-23 04:00] VITALS: BP 99/60
[2022-04-23] MEDS: SODIUM CHLORIDE 0.9% 1,000 ML IV SCH ×2 (05:50→14:33)
[2022-04-23] MEDS: BLOOD SUGAR DIAGNOSTIC STRIP TEST SCH ×4 (06:40→20:47)
[2022-04-23 08:00] VITALS: BP 127/34
[2022-04-23] MEDS: AMIODARONE HCL 200 MG TABLET PO SCH ×2 (10:18→18:32)
[2022-04-23] MEDS: MIDODRINE HCL 5MG TABLET PO SCH ×3 (10:18→18:33)
[2022-04-23] MEDS: ENOXAPARIN 40MG/0.4ML SYR SUBCUT SCH ×2 (10:20→20:44)
[2022-04-23 12:00] VITALS: BP 112/44
[2022-04-23] MEDS: INSULIN LISPRO 100 UNITS/ML SUBCUT SCH ×3 (12:49→20:47)
[2022-04-23 20:33] VITALS: BP 127/34
[2022-04-23] MEDS: LATANOPROST 0.005% OPHTH DROPS 2.5ML BOTHEYE SCH (20:45)
[2022-04-24] VITALS: BP 117/61
[2022-04-24 04:00] VITALS: BP 130/64
[2022-04-24] MEDS: HYDROCODONE/ACETAMINOPHEN 10/325MG TABLET PO PRN ×3 (04:39→22:07)
[2022-04-24] MEDS: BLOOD SUGAR DIAGNOSTIC STRIP TEST SCH ×3 (06:43→21:57)
[2022-04-24] MEDS: MIDODRINE HCL 5MG TABLET PO SCH ×2 (09:00→13:00)
[2022-04-24] MEDS: ENOXAPARIN 40MG/0.4ML SYR SUBCUT SCH ×2 (10:38→22:02)
[2022-04-24] MEDS: INSULIN LISPRO 100 UNITS/ML SUBCUT SCH ×3 (10:40→21:00)
[2022-04-24 12:00] VITALS: BP 118/59
[2022-04-24 16:00] VITALS: BP 108/57
[2022-04-24] MEDS: SODIUM CHLORIDE 0.9% 1,000 ML IV SCH (16:27)
[2022-04-24 19:31] VITALS: BP 118/59
[2022-04-24] MEDS ORDERED: LATANOPROST 0.005% OPHTH DROPS 2.5ML EACHEYE SCH (21:00)
[2022-04-24] MEDS: LATANOPROST 0.005% OPHTH DROPS 2.5ML BOTHEYE SCH (22:00)
[2022-04-24] MEDS: TIMOLOL MALEATE 0.5% OPHTH DROPS 5ML EACHEYE SCH (22:00)
[2022-04-25] VITALS: BP 101/59
[2022-04-25 04:00] VITALS: BP 105/67
[2022-04-25] MEDS: BLOOD SUGAR DIAGNOSTIC STRIP TEST SCH ×4 (07:57→20:55)
[2022-04-25 08:00] VITALS: BP 115/61
[2022-04-25] MEDS: INSULIN LISPRO 100 UNITS/ML SUBCUT SCH ×4 (08:43→20:56)
[2022-04-25] MEDS: ENOXAPARIN 40MG/0.4ML SYR SUBCUT SCH ×2 (08:44→20:57)
[2022-04-25] MEDS: MIDODRINE HCL 5MG TABLET PO SCH ×5 (08:45→17:23)
[2022-04-25] MEDS: HYDROCODONE/ACETAMINOPHEN 10/325MG TABLET PO PRN ×2 (08:46→17:37)
[2022-04-25] MEDS: TIMOLOL MALEATE 0.5% OPHTH DROPS 5ML EACHEYE SCH ×3 (08:47→17:21)
[2022-04-25] MEDS: AMIODARONE HCL 200 MG TABLET PO SCH (08:55)
[2022-04-25] MEDS ORDERED: *PATIENT'S OWN MEDICATION STORAGE XX SCH (11:45)
[2022-04-25 12:00] VITALS: BP 107/5
[2022-04-25 16:00] VITALS: BP 127/67
[2022-04-25] MEDS: SODIUM CHLORIDE 0.9% 1,000 ML IV SCH (17:23)
[2022-04-25 20:00] VITALS: BP 100/62
[2022-04-25] MEDS: LATANOPROST 0.005% OPHTH DROPS 2.5ML BOTHEYE SCH (20:57)
[2022-04-26] VITALS: BP 99/53
[2022-04-26] MEDS: HYDROCODONE/ACETAMINOPHEN 10/325MG TABLET PO PRN ×4 (01:35→20:48)
[2022-04-26 04:00] VITALS: BP 95/58
[2022-04-26 08:00] VITALS: BP 107/62
[2022-04-26] MEDS: INSULIN LISPRO 100 UNITS/ML SUBCUT SCH ×4 (08:10→20:49)
[2022-04-26] MEDS: BLOOD SUGAR DIAGNOSTIC STRIP TEST SCH ×4 (08:38→20:50)
[2022-04-26] MEDS: AMIODARONE HCL 200 MG TABLET PO SCH (08:44)
[2022-04-26] MEDS: MIDODRINE HCL 5MG TABLET PO SCH ×3 (08:44→17:01)
[2022-04-26] MEDS: TIMOLOL MALEATE 0.5% OPHTH DROPS 5ML EACHEYE SCH ×3 (08:45→17:01)
[2022-04-26] MEDS: ENOXAPARIN 40MG/0.4ML SYR SUBCUT SCH ×2 (08:45→20:48)
[2022-04-26 12:00] VITALS: BP 106/56
[2022-04-26] MEDS: SODIUM CHLORIDE 0.9% 1,000 ML IV SCH (12:46)
[2022-04-26 16:00] VITALS: BP 116/66
[2022-04-26 20:00] VITALS: BP 119/66
[2022-04-26] MEDS: LATANOPROST 0.005% OPHTH DROPS 2.5ML BOTHEYE SCH (20:47)
[2022-04-27] VITALS: BP 96/52
[2022-04-27 04:00] VITALS: BP 104/57
[2022-04-27] MEDS: HYDROCODONE/ACETAMINOPHEN 10/325MG TABLET PO PRN ×4 (04:40→21:04)
[2022-04-27] MEDS: BLOOD SUGAR DIAGNOSTIC STRIP TEST SCH ×4 (06:30→21:04)
[2022-04-27 06:45] LABS: HEMATOCRIT. 30.8 % (36.0-48.0); HEMOGLOBIN. 9.6 g/dL (12.0-16.0); MEAN CORPUSCULAR HEMOGLOBIN 23.5 pg (28.0-32.0); MEAN CORPUSCULAR VOLUME 74.9 fL (81.0-99.0); MEAN PLATELET VOLUME 8.7 fl (7.4-10.4); PLATELET 340 x1000/uL (130-400); RED BLOOD CELL COUNT 4.11 mill/uL (4.2-5.4); RED CELL DISTRIBUTION WIDTH 17.4 % (11.6-14.6)
[2022-04-27 06:55] LABS: CHLORIDE 105 mEq/L (98-107)
[2022-04-27 08:00] VITALS: BP 90/50
[2022-04-27] MEDS: INSULIN LISPRO 100 UNITS/ML SUBCUT SCH ×4 (08:10→21:00)
[2022-04-27] MEDS: MIDODRINE HCL 5MG TABLET PO SCH ×3 (09:17→17:08)
[2022-04-27] MEDS: AMIODARONE HCL 200 MG TABLET PO SCH (09:18)
[2022-04-27] MEDS: TIMOLOL MALEATE 0.5% OPHTH DROPS 5ML EACHEYE SCH ×3 (09:19→17:08)
[2022-04-27] MEDS: ENOXAPARIN 40MG/0.4ML SYR SUBCUT SCH ×2 (09:19→21:03)
[2022-04-27] MEDS: SODIUM CHLORIDE 0.9% 1,000 ML IV SCH (10:49)
[2022-04-27 12:00] VITALS: BP 101/56
[2022-04-27 12:22] LABS: PLATELET ESTIMATE NORMAL
[2022-04-27 16:00] VITALS: BP 124/86
[2022-04-27 20:00] VITALS: BP 107/63
[2022-04-27] MEDS: LATANOPROST 0.005% OPHTH DROPS 2.5ML BOTHEYE SCH (21:04)
[2022-04-28] VITALS: BP 102/55
[2022-04-28 04:00] VITALS: BP 92/52
[2022-04-28] MEDS: SODIUM CHLORIDE 0.9% 1,000 ML IV SCH (05:30)
[2022-04-28] MEDS: BLOOD SUGAR DIAGNOSTIC STRIP TEST SCH ×4 (06:34→21:00)
[2022-04-28 06:36] LABS: HEMATOCRIT. 31.3 % (36.0-48.0); HEMOGLOBIN. 10.1 g/dL (12.0-16.0); MEAN CORPUSCULAR HEMOGLOBIN 23.8 pg (28.0-32.0); MEAN CORPUSCULAR VOLUME 73.9 fL (81.0-99.0); MEAN PLATELET VOLUME 8.7 fl (7.4-10.4); PLATELET 340 x1000/uL (130-400); RED BLOOD CELL COUNT 4.23 mill/uL (4.2-5.4); RED CELL DISTRIBUTION WIDTH 17.2 % (11.6-14.6)
[2022-04-28 06:51] LABS: CHLORIDE 106 mEq/L (98-107)
[2022-04-28] MEDS: INSULIN LISPRO 100 UNITS/ML SUBCUT SCH ×4 (08:10→22:12)
[2022-04-28] MEDS: TIMOLOL MALEATE 0.5% OPHTH DROPS 5ML EACHEYE SCH ×3 (08:41→17:40)
[2022-04-28] MEDS: ENOXAPARIN 40MG/0.4ML SYR SUBCUT SCH (08:41)
[2022-04-28] MEDS: AMIODARONE HCL 200 MG TABLET PO SCH (08:42)
[2022-04-28] MEDS: HYDROCODONE/ACETAMINOPHEN 10/325MG TABLET PO PRN ×3 (08:57→22:13)
[2022-04-28] MEDS: MIDODRINE HCL 5MG TABLET PO SCH ×3 (09:21→17:39)
[2022-04-28 12:00] VITALS: BP 92/55
[2022-04-28 16:00] VITALS: BP 109/61
[2022-04-28 20:00] VITALS: BP 122/59
[2022-04-28] MEDS: LATANOPROST 0.005% OPHTH DROPS 2.5ML BOTHEYE SCH (22:11)
[2022-04-28 22:58] LABS: PLATELET ESTIMATE NORMAL
[2022-04-29] VITALS: BP 130/65
[2022-04-29 01:30] LABS: CLARITY URINE CLOUDY (CLEAR); COLOR URINE YELLOW (YELLOW); KETONES URINE NEGATIVE (NEGATIVE); LEUKOCYTE ESTERASE URINE 3+ (NEGATIVE); NITRITE URINE POSITIVE (NEGATIVE); OCCULT BLOOD URINE 1+ (NEGATIVE); PH URINE 6.5 (4.5-8.0); PROTEIN URINE TRACE (NEGATIVE); SPECIFIC GRAVITY URINE 1.011 (1.005-1.030)
[2022-04-29 04:00] VITALS: BP 109/63
[2022-04-29] MEDS: SODIUM CHLORIDE 0.9% 1,000 ML IV SCH ×2 (05:03→21:06)
[2022-04-29] MEDS: HYDROCODONE/ACETAMINOPHEN 10/325MG TABLET PO PRN ×4 (05:14→21:07)
[2022-04-29] MEDS: BLOOD SUGAR DIAGNOSTIC STRIP TEST SCH ×4 (06:13→20:56)
[2022-04-29] MEDS: INSULIN LISPRO 100 UNITS/ML SUBCUT SCH ×4 (06:13→20:57)
[2022-04-29 06:30] LABS: HEMATOCRIT. 32.2 % (36.0-48.0); MEAN CORPUSCULAR HEMOGLOBIN 23.2 pg (28.0-32.0); MEAN CORPUSCULAR VOLUME 74.6 fL (81.0-99.0); MEAN PLATELET VOLUME 8.6 fl (7.4-10.4); PLATELET 318 x1000/uL (130-400); RED BLOOD CELL COUNT 4.31 mill/uL (4.2-5.4); RED CELL DISTRIBUTION WIDTH 17.3 % (11.6-14.6)
[2022-04-29 08:00] VITALS: BP 95/51
[2022-04-29 08:57] LABS: CHLORIDE 106 mEq/L (98-107)
[2022-04-29] MEDS: TIMOLOL MALEATE 0.5% OPHTH DROPS 5ML EACHEYE SCH ×3 (09:08→16:30)
[2022-04-29] MEDS: MIDODRINE HCL 5MG TABLET PO SCH ×3 (09:14→16:30)
[2022-04-29] MEDS: AMIODARONE HCL 200 MG TABLET PO SCH (09:14)
[2022-04-29 11:11] LABS: PLATELET ESTIMATE NORMAL
[2022-04-29 12:00] VITALS: BP 112/55
[2022-04-29 16:00] VITALS: BP 109/75
[2022-04-29 20:00] VITALS: BP 117/62
[2022-04-29] MEDS: LATANOPROST 0.005% OPHTH DROPS 2.5ML BOTHEYE SCH (21:06)
[2022-04-30] VITALS: BP 101/60
[2022-04-30 04:00] VITALS: BP 89/40
[2022-04-30] MEDS: BLOOD SUGAR DIAGNOSTIC STRIP TEST SCH ×3 (06:28→21:00)
[2022-04-30] MEDS: INSULIN LISPRO 100 UNITS/ML SUBCUT SCH ×3 (06:28→21:26)
[2022-04-30] MEDS: HYDROCODONE/ACETAMINOPHEN 10/325MG TABLET PO PRN ×2 (06:58→17:36)
[2022-04-30 08:00] VITALS: BP 94/50
[2022-04-30] MEDS: MIDODRINE HCL 5MG TABLET PO SCH ×3 (11:29→17:36)
[2022-04-30] MEDS: TIMOLOL MALEATE 0.5% OPHTH DROPS 5ML EACHEYE SCH ×3 (11:30→17:37)
[2022-04-30] MEDS: AMIODARONE HCL 200 MG TABLET PO SCH (11:32)
[2022-04-30 16:00] VITALS: BP 104/42
[2022-04-30] MEDS: SODIUM CHLORIDE 0.9% 1,000 ML IV SCH (17:23)
[2022-04-30 20:00] VITALS: BP 97/56
[2022-04-30] MEDS: LATANOPROST 0.005% OPHTH DROPS 2.5ML BOTHEYE SCH (21:15)
[2022-05-01] VITALS: BP 96/57
[2022-05-01 04:00] VITALS: BP 95/49
[2022-05-01] MEDS: INSULIN LISPRO 100 UNITS/ML SUBCUT SCH ×3 (05:45→21:56)
[2022-05-01] MEDS: BLOOD SUGAR DIAGNOSTIC STRIP TEST SCH ×3 (05:45→21:00)
[2022-05-01] MEDS: HYDROCODONE/ACETAMINOPHEN 10/325MG TABLET PO PRN ×3 (06:46→21:55)
[2022-05-01 08:00] VITALS: BP 92/40
[2022-05-01] MEDS: TIMOLOL MALEATE 0.5% OPHTH DROPS 5ML EACHEYE SCH ×3 (09:36→18:11)
[2022-05-01] MEDS: AMIODARONE HCL 200 MG TABLET PO SCH (09:36)
[2022-05-01] MEDS: MIDODRINE HCL 5MG TABLET PO SCH ×3 (09:37→18:11)
[2022-05-01 12:00] VITALS: BP 101/52
[2022-05-01] MEDS: SODIUM CHLORIDE 0.9% 1,000 ML IV SCH (13:05)
[2022-05-01 15:48] LABS: HEMATOCRIT. 29.5 % (36.0-48.0); HEMOGLOBIN. 9.5 g/dL (12.0-16.0); MEAN CORPUSCULAR HEMOGLOBIN 23.7 pg (28.0-32.0); MEAN CORPUSCULAR VOLUME 73.6 fL (81.0-99.0); MEAN PLATELET VOLUME 8.5 fl (7.4-10.4); PLATELET 285 x1000/uL (130-400); RED CELL DISTRIBUTION WIDTH 17.3 % (11.6-14.6)
[2022-05-01 16:00] VITALS: BP 103/60
[2022-05-01 16:09] LABS: CHLORIDE 107 mEq/L (98-107)
[2022-05-01 17:09] LABS: PLATELET ESTIMATE NORMAL
[2022-05-01 20:00] VITALS: BP 110/50
[2022-05-01] MEDS: LATANOPROST 0.005% OPHTH DROPS 2.5ML BOTHEYE SCH (21:56)
[2022-05-02 00:23] VITALS: BP 105/40
[2022-05-02 04:00] VITALS: BP 93/43
[2022-05-02] MEDS: HYDROCODONE/ACETAMINOPHEN 10/325MG TABLET PO PRN ×3 (06:08→21:33)
[2022-05-02] MEDS: BLOOD SUGAR DIAGNOSTIC STRIP TEST SCH ×4 (06:11→21:35)
[2022-05-02 08:00] VITALS: BP 96/45
[2022-05-02] MEDS: INSULIN LISPRO 100 UNITS/ML SUBCUT SCH ×4 (08:10→21:34)
[2022-05-02] MEDS: AMIODARONE HCL 200 MG TABLET PO SCH (09:04)
[2022-05-02] MEDS: TIMOLOL MALEATE 0.5% OPHTH DROPS 5ML EACHEYE SCH ×3 (09:05→17:54)
[2022-05-02] MEDS: MIDODRINE HCL 5MG TABLET PO SCH ×3 (09:05→17:54)
[2022-05-02] MEDS: SODIUM CHLORIDE 0.9% 1,000 ML IV SCH (10:17)
[2022-05-02 12:00] VITALS: BP 102/58
[2022-05-02 16:00] VITALS: BP 132/64
[2022-05-02 20:00] VITALS: BP 117/60
[2022-05-02] MEDS: LATANOPROST 0.005% OPHTH DROPS 2.5ML BOTHEYE SCH (21:34)
[2022-05-02] MEDS: CEFTRIAXONE 1,000 MG in DEXTROSE 5% WATER 50 ML IV SCH (23:07)
[2022-05-03 00:01] VITALS: BP 120/48
[2022-05-03 04:00] VITALS: BP 91/50
[2022-05-03] MEDS: HYDROCODONE/ACETAMINOPHEN 10/325MG TABLET PO PRN ×3 (04:12→22:02)
[2022-05-03] MEDS: SODIUM CHLORIDE 0.9% 1,000 ML IV SCH (05:01)
[2022-05-03] MEDS: BLOOD SUGAR DIAGNOSTIC STRIP TEST SCH ×4 (07:31→21:59)
[2022-05-03] MEDS: INSULIN LISPRO 100 UNITS/ML SUBCUT SCH ×4 (07:31→21:32)
[2022-05-03] MEDS: AMIODARONE HCL 200 MG TABLET PO SCH (09:18)
[2022-05-03] MEDS: TIMOLOL MALEATE 0.5% OPHTH DROPS 5ML EACHEYE SCH ×3 (09:19→18:10)
[2022-05-03] MEDS: MIDODRINE HCL 5MG TABLET PO SCH ×3 (09:19→18:11)
[2022-05-03 12:00] VITALS: BP 99/49
[2022-05-03 16:00] VITALS: BP 123/45
[2022-05-03 20:00] VITALS: BP 113/47
[2022-05-03] MEDS: LATANOPROST 0.005% OPHTH DROPS 2.5ML BOTHEYE SCH (21:30)
[2022-05-03] MEDS: CEFTRIAXONE 1,000 MG in DEXTROSE 5% WATER 50 ML IV SCH (21:31)
[2022-05-04] VITALS (7 sets, daily range): BP systolic 91–117; BP diastolic 44–56
[2022-05-04] MEDS: SODIUM CHLORIDE 0.9% 1,000 ML IV SCH ×2 (01:40→21:30)
[2022-05-04] MEDS: BLOOD SUGAR DIAGNOSTIC STRIP TEST SCH ×4 (06:46→21:00)
[2022-05-04] MEDS: INSULIN LISPRO 100 UNITS/ML SUBCUT SCH ×4 (08:10→22:24)
[2022-05-04] MEDS: AMIODARONE HCL 200 MG TABLET PO SCH (09:16)
[2022-05-04] MEDS: MIDODRINE HCL 5MG TABLET PO SCH ×3 (09:16→18:05)
[2022-05-04] MEDS: TIMOLOL MALEATE 0.5% OPHTH DROPS 5ML EACHEYE SCH ×3 (09:16→18:05)
[2022-05-04] MEDS: HYDROCODONE/ACETAMINOPHEN 10/325MG TABLET PO PRN ×3 (09:22→22:22)
[2022-05-04] MEDS: CEFTRIAXONE 1,000 MG in DEXTROSE 5% WATER 50 ML IV SCH (22:12)
[2022-05-04] MEDS: LATANOPROST 0.005% OPHTH DROPS 2.5ML BOTHEYE SCH (22:23)
[2022-05-05] VITALS: BP 95/57
[2022-05-05 04:00] VITALS: BP 96/42
[2022-05-05] MEDS: HYDROCODONE/ACETAMINOPHEN 10/325MG TABLET PO PRN ×3 (05:18→17:52)
[2022-05-05] MEDS: INSULIN LISPRO 100 UNITS/ML SUBCUT SCH ×4 (06:22→22:03)
[2022-05-05] MEDS: BLOOD SUGAR DIAGNOSTIC STRIP TEST SCH ×4 (06:22→21:00)
[2022-05-05 06:41] LABS: HEMATOCRIT. 32.8 % (36.0-48.0); HEMOGLOBIN. 10.4 g/dL (12.0-16.0); MEAN CORPUSCULAR HEMOGLOBIN 23.3 pg (28.0-32.0); MEAN CORPUSCULAR VOLUME 73.5 fL (81.0-99.0); MEAN PLATELET VOLUME 8.9 fl (7.4-10.4); PLATELET 301 x1000/uL (130-400); RED BLOOD CELL COUNT 4.46 mill/uL (4.2-5.4); RED CELL DISTRIBUTION WIDTH 16.7 % (11.6-14.6)
[2022-05-05 06:56] LABS: CHLORIDE 105 mEq/L (98-107)
[2022-05-05 08:00] VITALS: BP 95/54
[2022-05-05 08:49] LABS: PLATELET ESTIMATE NORMAL
[2022-05-05] MEDS: MIDODRINE HCL 5MG TABLET PO SCH ×3 (09:21→17:21)
[2022-05-05] MEDS: AMIODARONE HCL 200 MG TABLET PO SCH (09:21)
[2022-05-05] MEDS: TIMOLOL MALEATE 0.5% OPHTH DROPS 5ML EACHEYE SCH ×3 (09:21→17:21)
[2022-05-05 12:00] VITALS: BP 106/39
[2022-05-05 16:00] VITALS: BP 99/51
[2022-05-05] MEDS: SODIUM CHLORIDE 0.9% 1,000 ML IV SCH (17:22)
[2022-05-05 20:00] VITALS: BP 100/53
[2022-05-05] MEDS: CEFTRIAXONE 1,000 MG in DEXTROSE 5% WATER 50 ML IV SCH (22:01)
[2022-05-05] MEDS: LATANOPROST 0.005% OPHTH DROPS 2.5ML BOTHEYE SCH (22:09)
[2022-05-06] VITALS: BP 116/57
[2022-05-06] MEDS: HYDROCODONE/ACETAMINOPHEN 10/325MG TABLET PO PRN ×4 (00:51→21:56)
[2022-05-06 04:00] VITALS: BP_SYST 105; BP_SYST 126; BP_DIAS 69; BP_DIAS 70
[2022-05-06] MEDS: INSULIN LISPRO 100 UNITS/ML SUBCUT SCH ×4 (07:00→20:59)
[2022-05-06] MEDS: BLOOD SUGAR DIAGNOSTIC STRIP TEST SCH ×4 (07:04→20:06)
[2022-05-06 08:00] VITALS: BP 99/56
[2022-05-06] MEDS: TIMOLOL MALEATE 0.5% OPHTH DROPS 5ML EACHEYE SCH ×3 (08:44→17:50)
[2022-05-06] MEDS: MIDODRINE HCL 5MG TABLET PO SCH ×3 (08:44→17:50)
[2022-05-06 12:00] VITALS: BP 106/33
[2022-05-06 16:00] VITALS: BP 109/58
[2022-05-06] MEDS: SODIUM CHLORIDE 0.9% 1,000 ML IV SCH (18:01)
[2022-05-06 20:00] VITALS: BP 95/55
[2022-05-06] MEDS: CEFTRIAXONE 1,000 MG in DEXTROSE 5% WATER 50 ML IV SCH (21:03)
[2022-05-07] VITALS: BP 114/56
[2022-05-07 04:00] VITALS: BP 104/53
[2022-05-07] MEDS: HYDROCODONE/ACETAMINOPHEN 10/325MG TABLET PO PRN ×3 (04:54→21:33)
[2022-05-07] MEDS: BLOOD SUGAR DIAGNOSTIC STRIP TEST SCH ×4 (06:30→21:05)
[2022-05-07 08:00] VITALS: BP 89/55
[2022-05-07] MEDS: INSULIN LISPRO 100 UNITS/ML SUBCUT SCH ×4 (08:10→21:29)
[2022-05-07] MEDS: MIDODRINE HCL 5MG TABLET PO SCH ×3 (09:30→17:40)
[2022-05-07] MEDS: TIMOLOL MALEATE 0.5% OPHTH DROPS 5ML EACHEYE SCH ×3 (09:31→17:39)
[2022-05-07] MEDS: SODIUM CHLORIDE 0.9% 1,000 ML IV SCH (09:32)
[2022-05-07 12:00] VITALS: BP 110/54
[2022-05-07] MEDS ORDERED: IPRATROPIUM/ALBUTEROL 0.5-3(2.5)MG/3ML NEB HHN PRN (15:30)
[2022-05-07 16:00] VITALS: BP 93/46
[2022-05-07 20:00] VITALS: BP 138/56
[2022-05-07] MEDS: CEFTRIAXONE 1,000 MG in DEXTROSE 5% WATER 50 ML IV SCH (21:35)
[2022-05-08] VITALS: BP 104/35
[2022-05-08 04:00] VITALS: BP 88/50
[2022-05-08] MEDS: HYDROCODONE/ACETAMINOPHEN 10/325MG TABLET PO PRN ×3 (05:31→22:04)
[2022-05-08] MEDS: BLOOD SUGAR DIAGNOSTIC STRIP TEST SCH ×4 (05:31→21:00)
[2022-05-08] MEDS: INSULIN LISPRO 100 UNITS/ML SUBCUT SCH ×4 (06:55→21:59)
[2022-05-08 08:00] VITALS: BP 96/60
[2022-05-08] MEDS: TIMOLOL MALEATE 0.5% OPHTH DROPS 5ML EACHEYE SCH ×3 (08:42→16:56)
[2022-05-08] MEDS: MIDODRINE HCL 5MG TABLET PO SCH ×3 (08:43→16:55)
[2022-05-08 12:00] VITALS: BP_SYST 104; BP_SYST 128; BP_DIAS 55; BP_DIAS 72
[2022-05-08 16:00] VITALS: BP 95/48
[2022-05-08 20:29] VITALS: BP 121/65
[2022-05-09 00:25] VITALS: BP 99/51
[2022-05-09 04:00] VITALS: BP 98/52
[2022-05-09] MEDS: BLOOD SUGAR DIAGNOSTIC STRIP TEST SCH ×4 (06:11→20:51)
[2022-05-09] MEDS: INSULIN LISPRO 100 UNITS/ML SUBCUT SCH ×4 (06:13→20:51)
[2022-05-09] MEDS: HYDROCODONE/ACETAMINOPHEN 10/325MG TABLET PO PRN ×3 (06:13→20:51)
[2022-05-09 08:00] VITALS: BP 94/58
[2022-05-09] MEDS: TIMOLOL MALEATE 0.5% OPHTH DROPS 5ML EACHEYE SCH ×3 (08:49→17:08)
[2022-05-09] MEDS: MIDODRINE HCL 5MG TABLET PO SCH ×3 (08:49→17:09)
[2022-05-09 12:00] VITALS: BP 109/71
[2022-05-09 16:00] VITALS: BP 108/61
[2022-05-09 20:00] VITALS: BP 104/60
[2022-05-10] VITALS: BP 101/61
[2022-05-10 04:00] VITALS: BP 100/64
[2022-05-10] MEDS: HYDROCODONE/ACETAMINOPHEN 10/325MG TABLET PO PRN ×3 (06:21→20:20)
[2022-05-10] MEDS: BLOOD SUGAR DIAGNOSTIC STRIP TEST SCH ×3 (06:47→17:40)
[2022-05-10 08:00] VITALS: BP 90/62
[2022-05-10] MEDS: INSULIN LISPRO 100 UNITS/ML SUBCUT SCH ×3 (08:10→18:10)
[2022-05-10] MEDS: TIMOLOL MALEATE 0.5% OPHTH DROPS 5ML EACHEYE SCH ×3 (09:00→17:00)
[2022-05-10] MEDS: MIDODRINE HCL 5MG TABLET PO SCH ×3 (09:00→17:00)
[2022-05-10 12:00] VITALS: BP 126/63
[2022-05-10 16:00] VITALS: BP 109/53
[2022-05-10] MEDS ORDERED: NALOXONE HCL 0.4MG/ML VIAL IV PRN (19:45)
[2022-05-10 20:20] VITALS: BP 109/63
[2022-05-10] MEDS ORDERED: NYSTATIN 100,000 UNITS/GM OINT 15GM TOP SCH (21:00)
== END 2022-05-10 21:50 | DRG 720 ==
LOC: ER 11:59 → EDBD 11:59 → 7WST 13:39 → EDBEDREQ 14:29 → EDBEDREQTM 14:29 → EDBEDREQSVC 14:29 → ENRESERV 21:12 → 7WST 23:41 → MICUNO 04-04 23:45 → 7WST 04-14 09:37
PROVIDERS: ADMIT Internal Medicine; ATTEND Internal Medicine
PROC: 0JB90ZZ Excision of Buttock Subcutaneous Tissue and Fascia, Open Approach (ICD-10-PCS; principal; 2022-04-04)
PROC: 5A1935Z Respiratory Ventilation, Less than 24 Consecutive Hours (ICD-10-PCS; 2022-04-04)
PROC: 05JY3ZZ Inspection of Upper Vein, Percutaneous Approach (ICD-10-PCS; 2022-04-04)
PROC: 06HY33Z Insertion of Infusion Device into Lower Vein, Percutaneous Approach (ICD-10-PCS; 2022-04-04)
PROC: 0BH17EZ Insertion of Endotracheal Airway into Trachea, Via Natural or Artificial Opening (ICD-10-PCS; 2022-04-04)
PROC: 05HY33Z Insertion of Infusion Device into Upper Vein, Percutaneous Approach (ICD-10-PCS; 2022-04-08)
PROC: B54MZZA Ultrasonography of Right Upper Extremity Veins, Guidance (ICD-10-PCS; 2022-04-08)
PROC: 0JB90ZZ Excision of Buttock Subcutaneous Tissue and Fascia, Open Approach (ICD-10-PCS; 2022-04-11)
PROC: 30233N1 Transfusion of Nonautologous Red Blood Cells into Peripheral Vein, Percutaneous Approach (ICD-10-PCS; 2022-04-11)
DX: A41.9 Sepsis, unspecified organism (principal); N17.0 Acute kidney failure with tubular necrosis; J96.00 Acute respiratory failure, unspecified whether with hypoxia or hypercapnia; R65.21 Severe sepsis with septic shock; E43 Unspecified severe protein-calorie malnutrition; G93.41 Metabolic encephalopathy; E11.52 Type 2 diabetes mellitus with diabetic peripheral angiopathy with gangrene; I47.1 Supraventricular tachycardia; E86.1 Hypovolemia; I48.92 Unspecified atrial flutter; D64.9 Anemia, unspecified; I48.91 Unspecified atrial fibrillation; E11.649 Type 2 diabetes mellitus with hypoglycemia without coma; E11.65 Type 2 diabetes mellitus with hyperglycemia; L02.31 Cutaneous abscess of buttock; E87.2 Acidosis; L03.317 Cellulitis of buttock; E87.8 Other disorders of electrolyte and fluid balance, not elsewhere classified; E87.1 Hypo-osmolality and hyponatremia; I11.9 Hypertensive heart disease without heart failure; G90.8 Other disorders of autonomic nervous system; N39.0 Urinary tract infection, site not specified; E66.01 Morbid (severe) obesity due to excess calories; G47.33 Obstructive sleep apnea (adult) (pediatric); Z20.822 Contact with and (suspected) exposure to COVID-19; Z71.3 Dietary counseling and surveillance; Z83.3 Family history of diabetes mellitus; Z68.43 Body mass index [BMI] 50.0-59.9, adult
CPT/HCPCS: 36415; 36573; 36600; 71045; 73700; 74176; 80048; 80053; 80076; 80202; 81003; 82040; 82140; 82375; 82550; 82805; 82962; 83036; 83605; 83880; 84134; 84145; 84439; 84443; 84478; 85025; 85379; 86850; 86900; 86920; 87070; 87075; 87076; 87426; 88304; 93005; 93306; 93970; 94002; 94003; 97110; 97161; 97164; 97166; 97530; 99285; A6261; C1725; C1769; C1893; J0282; J0330; J0690; J0692; J0696; J1100; J1160; J1170; J1650; J1815; J1956; J2250; J2270; J2370; J2405; J2704; J2765; J3010; J3370; J3490; J7030; J7050; J7060; P9016; Q0163; A4315